=== PATIENT | male | born 1935 | race African-American/Black ===

== ENCOUNTER 2023-02-25 20:07 | Emergency (ER) | payer OTHER ==
[~2023-02-25] VITALS: Ht 170.2 cm; Wt 46.0 kg
[2023-02-25 20:13] VITALS: BP 68/33; PULSE 77; RESP 10; TEMP 96.8; O2SAT 88
== END 2023-02-25 20:11 ==
LOC: ER 20:07
DX: I46.9 Cardiac arrest, cause unspecified (principal)
CPT/HCPCS: 31500; 92950; 99285